=== PATIENT | female | born 1950 | race Caucasian/White ===

== ENCOUNTER → 2017-12-30 | Outpatient (CLI) | payer MEDICARE, BC ==
[~2017-12-30] MED LIST: ASPI81CH PO; CALCAVITD PO; Excedrin Extra1 EACH; IBUP600 PO; LYSINE PO; Simvastatin40 MG PO
== END | disposition home or self-care (01) ==
LOC: LAB 17:45 → LAB SHORT 17:45
PROVIDERS: Family Medicine
DX: Z01.419 Encounter for gynecological examination (general) (routine) without abnormal findings (principal); N95.2 Postmenopausal atrophic vaginitis
CPT/HCPCS: G0145

== ENCOUNTER 2018-03-18 10:14 | Day surgery (SDC) | payer MEDICARE, BC ==
[~2018-03-18] VITALS: Ht 157.5 cm; Wt 52.7 kg
== END 2018-03-18 15:43 | disposition home or self-care (01) ==
LOC: ORSCSDS 10:14
PROVIDERS: Podiatrist Foot & Ankle Surgery
PROC: 0QSL04Z Reposition Right Tarsal with Internal Fixation Device, Open Approach (ICD-10-PCS; principal; 2018-03-18 12:00)
DX: S92.001A Unspecified fracture of right calcaneus, initial encounter for closed fracture (principal); E78.5 Hyperlipidemia, unspecified; M06.9 Rheumatoid arthritis, unspecified; Z86.73 Personal history of transient ischemic attack (TIA), and cerebral infarction without residual deficits; Z79.82 Long term (current) use of aspirin; Z79.899 Other long term (current) drug therapy
CPT/HCPCS: C1713; C1769; J0690; J1100; J2250; J2370; J2405; J3010; J7120

== ENCOUNTER → 2020-11-16 | Outpatient (CLI) | payer MEDICARE, BC ==
[~2020-11-16] MED LIST changes: +ALEN70; +CLIMARA1 EACH
== END | disposition home or self-care (01) ==
LOC: LAB SHORT 16:04 → PLD 16:04
DX: D22.5 Melanocytic nevi of trunk (principal)
CPT/HCPCS: 88305